=== PATIENT | male | born 1990 | race Two or more races ===

== ENCOUNTER 2022-12-09 21:22 | Inpatient (IN) | payer OTHER ==
[~2022-12-09] VITALS: Ht 172.7 cm; Wt 92.2 kg
[2022-12-09] MEDS ORDERED: SODIUM CHLORIDE 0.9% 1,000 ML IV ONE (22:45)
[2022-12-09 22:59] LABS: BASOPHILS % (AUTO) 0.7 % (0.0-2.0); EOSINOPHILS % (AUTO) 1.4 % (1.0-6.0); HEMATOCRIT 39.8 % (41-53); HEMOGLOBIN 13.1 g/dL (13.5-17.5); LYMPHOCYTES # (AUTO) 1.9 K/uL (1.0-4.8); LYMPHOCYTES % (AUTO) 20.6 % (22.0-44.0); MEAN CORPUSCULAR HEMOGLOBIN 27.1 pg (26.0-34.0); MEAN CORPUSCULAR VOLUME 82 fL (80-100); MONOCYTES # (AUTO) 0.6 K/uL (0.1-1.0); MONOCYTES % (AUTO) 6.3 % (2.0-9.0); NEUTROPHILS # (AUTO) 6.4 K/uL (1.8-7.7); PLATELET COUNT (AUTO) 298 K/uL (150-450); RED BLOOD CELL COUNT(AUTO) 4.84 MIL/uL (4.50-5.90); RED CELL DISTRIBUTION WIDTH 15.1 % (11.5-14.5)
[2022-12-09 23:09] LABS: ANION GAP 10 mmol/L (8-16); CALCIUM, TOTAL 8.7 mg/dL (8.8-10.5); CARBON DIOXIDE 27 mmol/L (22-29); CHLORIDE 100 mmol/L (98-107); CREATININE 0.71 mg/dL (0.60-1.30); GLOMERULAR FILTR. RATE CALC > 60 mL/min (>60); GLUCOSE,RANDOM 105 mg/dL (70-110); POTASSIUM 3.7 mmol/L (3.5-5.1); SODIUM SERUM 137 mmol/L (136-145); UREA NITROGEN, BLOOD 12 mg/dL (7-18)
[2022-12-09 23:14] LABS: ALANINE AMINOTRANSFERASE 24 U/L (12-78); ALBUMIN 3.6 g/dL (3.4-5.0); ALKALINE PHOSPHATASE 88 U/L (46-116); ASPARTATE AMINOTRANSFERASE 23 U/L (15-37); BILIRUBIN,TOTAL 0.5 mg/dL (0.1-1.0); TOTAL PROTEIN, SERUM 7.6 g/dL (6.4-8.2)
[2022-12-09] MEDS ORDERED: METOCLOPRAMIDE HCL 5 MG/ML 2 ML VIAL IVP ONE (23:15)
[2022-12-10 00:31] LABS: AMPHET/METH SCREEN,URINE NEGATIVE (NEGATIVE); BARBITURATE SCREEN, URINE NEGATIVE (NEGATIVE); BENZODIAZEPINES SCREEN,URINE NEGATIVE (NEGATIVE); CANNABINOID SCREEN,URINE NEGATIVE (NEGATIVE); COCAINE SCREEN,URINE NEGATIVE (NEGATIVE); METHADONE SCREEN, URINE NEGATIVE (NEGATIVE); OPIATE SCREEN,URINE NEGATIVE (NEGATIVE); PHENCYCLIDINE SCREEN,URINE NEGATIVE (NEGATIVE)
[2022-12-10] MEDS ORDERED: KETOROLAC TROMETHAMINE 15 MG/ML VIAL IVP PRN (01:45)
[2022-12-10] MEDS ORDERED: ACETAMINOPHEN 325 MG TABLET PO PRN (01:45)
[2022-12-10] MEDS: ONDANSETRON HCL 4 MG/2 ML VIAL IVP PRN (03:05)
[2022-12-10 04:44] VITALS: BP 110/59
[2022-12-10 07:32] VITALS: BP 105/51
[2022-12-10] MEDS: HEPARIN SODIUM,PORCINE 5,000 UNITS/ML VIAL SQ SCH ×2 (08:23→16:00)
[2022-12-10] MEDS: DOCUSATE SODIUM 100 MG CAPSULE PO SCH ×2 (08:23→20:42)
[2022-12-10] MEDS ORDERED: LORazepam 1 MG TABLET ONE (11:26)
[2022-12-10] MEDS ORDERED: LORazepam 2 MG/ML VIAL IM PRN (11:30)
[2022-12-10] MEDS ORDERED: LORazepam 1 MG TABLET PO PRN (12:00)
[2022-12-10 15:18] VITALS: BP 98/55
[2022-12-10 20:05] VITALS: BP 104/56
[2022-12-11] MEDS: HEPARIN SODIUM,PORCINE 5,000 UNITS/ML VIAL SQ SCH ×3 (00:31→15:54)
[2022-12-11] MEDS: DOCUSATE SODIUM 100 MG CAPSULE PO SCH ×2 (07:52→20:56)
[2022-12-11 08:00] VITALS: BP 125/78
[2022-12-11] MEDS: ONDANSETRON HCL 4 MG/2 ML VIAL IVP PRN (08:15)
[2022-12-11 20:20] VITALS: BP 103/72
[2022-12-12] MEDS: HEPARIN SODIUM,PORCINE 5,000 UNITS/ML VIAL SQ SCH ×3 (00:04→16:24)
[2022-12-12 05:07] VITALS: BP 108/69
[2022-12-12 08:16] VITALS: BP 133/69
[2022-12-12] MEDS: DOCUSATE SODIUM 100 MG CAPSULE PO SCH ×2 (08:32→20:26)
[2022-12-12 15:47] VITALS: BP 119/67
[2022-12-12 18:43] LABS: APPEARANCE,URINE CLEAR (CLEAR); BILIRUBIN,URINE NEGATIVE (NEGATIVE); GLUCOSE, URINE (UA) NEGATIVE (NEGATIVE); LEUKOCYTE ESTERASE ,URINE NEGATIVE (NEGATIVE); NITRATE,URINE NEGATIVE (NEGATIVE); OCCULT BLOOD,URINE NEGATIVE (NEGATIVE); PH,URINE 7.5 (5.0-8.0); PROTEIN,URINE NEGATIVE (NEGATIVE); SPECIFIC GRAVITIY, URINE 1.015 (1.003-1.030)
[2022-12-12 20:22] VITALS: BP 120/73
[2022-12-13] MEDS: HEPARIN SODIUM,PORCINE 5,000 UNITS/ML VIAL SQ SCH ×2 (00:19→08:36)
[2022-12-13 04:06] VITALS: BP 105/60
[2022-12-13 07:31] VITALS: BP 124/64
[2022-12-13] MEDS: DOCUSATE SODIUM 100 MG CAPSULE PO SCH (08:36)
== END 2022-12-13 15:00 | DRG 896 ==
LOC: EMS 21:24 → 6S 12-10 03:34
PROVIDERS: ADMIT Internal Medicine; ATTEND Internal Medicine
PROC: HZ2ZZZZ Detoxification Services for Substance Abuse Treatment (ICD-10-PCS; principal; 2022-12-10)
DX: F11.129 Opioid abuse with intoxication, unspecified (principal); G92.8 Other toxic encephalopathy; F33.0 Major depressive disorder, recurrent, mild; F11.13 Opioid abuse with withdrawal; E66.9 Obesity, unspecified; T40.415A Adverse effect of fentanyl or fentanyl analogs, initial encounter; D64.9 Anemia, unspecified; F41.9 Anxiety disorder, unspecified; F19.129 Other psychoactive substance abuse with intoxication, unspecified; Z20.822 Contact with and (suspected) exposure to COVID-19; Z68.30 Body mass index [BMI] 30.0-30.9, adult; Y92.89 Other specified places as the place of occurrence of the external cause
CPT/HCPCS: 71045; 80053; 80307; 81003; 85025; 87040; 99285; J1644; J1885; J2405; J2765; J7030; 36415-L1; 36415-TC; U0003